=== PATIENT | female | born 2000 | race African-American/Black ===

== ENCOUNTER 2025-01-09 23:36 | Emergency (ER) | payer OTHER, SELFPAY ==
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
[2025-01-09 23:37] VITALS: BP 101/62; PULSE 99; RESP 20; TEMP 36.6; O2SAT 100
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
--- OUTSIDE RECORDS SUMMARY | 2025-01-10 00:50 | XMS_ITS | Encounter Summary ---
Author Organization [facility] Healthcare Address [address] [place] [address] Care Team Providers Care General Merchandise Salesperson Name Role Phone Priyanka Edmonds MD Primary Care Provider [phone] No, Physician Primary Care Provider Priyanka Edmonds MD Primary Care Provider [phone] No, Physician Primary Care Provider No, Physician Primary Care Provider Priyanka Edmonds MD Primary Care Provider [phone] No, Physician Primary Care Provider Unknown, Notinfile Primary Care Provider Unavail able No, Physician Unavailable No, Physician Unavailable Encounter Details Date Type Department Care Team (Late st Contact Info) Description 04/06/2018 Documentation [facility] [place] [address] Christofer Barnhart MSW Social History Tobacco Use Types Packs/Day Years Used Date Smoking Tobacco: Never Assessed Comments No Sex and Gender Information Value Date Recorded Sex Assigned at Not on file Legal Sex Female 8:00 PM CERTIFIED NURSE MIDWIFE Gender Identity Not on file Sexual Orientation Not on file documented as of this encounter Plan of Treatment Not on file documented as of this encounter Visit Diagnoses Not on filedocumented in this encounter Additional Health Concerns Infection Onset Date Last Indicated Resolved Time Group A Strep, droplet 11/19/2019 11/19/2019 3:05 AM CERTIFIED NURSE MIDWIFE COVID: Suspected 03/15/2020 03/17/2020 03/29/2020 3:05 AM CDT COVID: Suspected 03/17/2020 03/17/2020 03/18/2020 10:24 AM CDT COVID: Suspected 05/03/2020 05/03/2020 05/04/2020 5:11 AM CDT Respiratory Infection (GILDA), contact + droplet Comment:Automatically added due to negative COVID-19 result. 05/04/2020 05/04/2020 05/18/2020 3:0 5 AM CDT COVID: Suspected 12/04/2020 12/04/2020 12/04/2020 10:27 AM CERTIFIED NURSE MIDWIFE Exposure, COVID-19 06/21/2021 06/21/2021 3:05 AM CDT COVID: Suspected 06/21/2021 06/21/2021 06/21/2021 3:43 PM CDT COVID: Suspected 09/19/2021 09/19/2021 09/19/2021 1:44 PM CERTIFIED NURSE MIDWIFE Influenza, adult 09/19/2021 09/19/2021 09/26/2021 3:05 AM CERTIFIED NURSE MIDWIFE COVID19 09/19/2021 09/19/2021 10/03/2021 3:05 AM CERTIFIED NURSE MIDWIFE documented as of this encounter Care Teams General Merchandise Salesperson Relationship Specialty Start Date End Date Priyanka Edmonds MD PCP - General 04/30/17 09/03/19 No, Physician PCP - General 09/04/19 10/17/19 Priyanka Edmonds MD PCP - General 10/18/19 03/14/20 No, Physician PCP - General 03/15/20 03/16/20 No, Physician PCP - General 03/17/20 03/20/20 Priyanka Edmonds MD PCP - General Pediatrics 03/21/20 03/21/20 No, Physician PCP - General 03/22/20 09/18/21 Unknown, Notinfile PCP - General 09/19/21 No, Physician 09/19/21 No, Physician 03/17/20 documented as of this encounter
--- OUTSIDE RECORDS SUMMARY | 2025-01-10 00:51 | XMS_ITS | Encounter Summary ---
Author Organization [facility] Address [address] [place] [address] Phone Care Team Providers Care Feed Project Engineer Name Role Phone No, Physician Primary Care Provider [phone] Priyanka Edmonds MD Primary Care Provider [phone] No, Physician Primary Care Provider [phone] Unknown, Notinfile Primary Care Provider Unavail able No, Physician Unavailable No, Physician Unavailable Encounter Details Date Type Department Care Team (Late st Contact Info) Description 03/17/2020 Ophth Exam [facility] Ophthalmology [address] [place] [address] [address] [place] [id number] Solange Saonn MD [address] [place] [address] Social History Tobacco Use Types Packs/Day Years Used Date Smoking Tobacco: Never Assessed AUDIT-C Answer Date Recorded Frequency of Alcohol Consumption Never 10/16/2019 Average Number of Drinks Not on file 020 Frequency of Binge Drinking Not on file 09/25 Comments No Sex and Gender Information Value Date Recorded Sex Assigned at Not on file Legal Sex Female 8:00 PM APPLICATIONS CONSULTANT Gender Identity Not on file Sexual Orientation Not on file documented as of this encounter Plan of Treatment Not on file documented as of this encounter Visit Diagnoses Not on filedocumented in this encounter Additional Health Concerns Infection Onset Date Last Indicated Resolved Time COVID: Suspected 03/15/2020 03/17/2020 03/29/2020 3:05 AM CDT COVID: Suspected 03/17/2020 03/17/2020 03/18/2020 10:24 AM CDT COVID: Suspected 05/03/2020 05/03/2020 05/04/2020 5:11 AM CDT Respiratory Infection (GILDA), contact + droplet Comment:Automatically added due to negative COVID-19 result. 05/04/2020 05/04/2020 05/18/2020 3:0 5 AM CDT COVID: Suspected 12/04/2020 12/04/2020 12/04/2020 10:27 AM APPLICATIONS CONSULTANT Exposure, COVID-19 06/21/2021 06/21/2021 3:05 AM CDT COVID: Suspected 06/21/2021 06/21/2021 06/21/2021 3:43 PM CDT COVID: Suspected 09/19/2021 09/19/2021 09/19/2021 1:44 PM APPLICATIONS CONSULTANT Influenza, adult 09/19/2021 09/19/2021 09/26/2021 3:05 AM APPLICATIONS CONSULTANT COVID19 09/19/2021 09/19/2021 10/03/2021 3:05 AM APPLICATIONS CONSULTANT documented as of this encounter Eye Exam Visual Acuity Right eye Left eye Near sc 20/20 20/40 PH 20/20 Tonometry (Palpation, 4:25 AM) Right eye Left eye Pressure NTP NTP Patient did not tolerate tonopen, could not cooperate with tonopen exam. Palpation was used. Pupils Dark Light React APD Right eye 4 2 Brisk None Left eye 4 2 Brisk None Visual Alcant[place] (Counting fingers) Right eye Left eye Full Restrictions Partial outer lester perior temporal, superior nasal deficiencies Extraocular Movement Right eye Left eye Full Full Neuro/Psych Oriented x3: Yes Mood/Affect: Normal Dilation Both eyes: 1.0% Mydriacyl, 2 .5% Phenylephrine @ 4:25 AM External Exam Right eye Left eye External Normal Normal Slit Lamp Exam Right eye Left eye Lids/Lashes Normal Normal Conjunctiva/Sclera White and quiet Small area of temproal LOLY with chemosis Cornea Clear Clear Anterior Chamber Deep and quiet Deep and quiet. No hyphema Iris Round and reactive Round and karlene ctive Lens Clear Clear Vitreous Normal Normal Patient poorly cooperative with exam. Significant Hunter's reflex and eye squeezing. Fundus Exam Right eye Left eye Disc Normal Normal C/D Ratio 0.3 0.35 Macula Normal Normal Vessels Normal Normal Periphery Normal Normal Limited views peripherally due to patient squeezing and Hunter's Care Teams Feed Project Engineer Relationship Specialty Start Date End Date No, Physician PCP - General 03/17/20 03/20/20 Pryianka Edmonds MD PCP - General Pediatrics 03/21/20 03/21/20 No, Physician PCP - General 03/22/20 09/18/21 Unknown, Notinfile PCP - General 09/19/21 No, Physician 09/19/21 No, Physician 03/17/20 documented as of this encounter
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
--- OUTSIDE RECORDS SUMMARY | 2025-01-10 00:51 | XMS_ITS | Clinical Summary ---
Author Organization [facility] Address [address] [place] [address] Care Team Providers Care Sports Information Director Name Role Phone Unavailable Primary Care Provider Unavailabl e Source Comments [facility],non-owned Affiliates and Associated Physician Practices is amultiple site organization consisting of ambulatory clinics and hospital sitesin [place], [place], [place] and [place]. This disclosure is being madepursuant to the Care Everywhere program and may not contain all information available regarding this patient. Last updated 18.[facility] Shared Spectrum Allergies No known active allergies Medications * Be aware that medications may not be up to date on this document. Alwaysverify current medications with the patient. ibuprofen (MOTRIN) 600 MG tablet Take 600 mg by mouth 0 Active ondansetron, disintegrating, (ZOFRAN ODT) 4 MG tablet DISSOLVE ONE TABLET BY MOUTH EVERY 6 TO 8 HOURS NEEDED FOR NAUSEA 0 Active triamcinolone acetonide (KENALOG) 0.1 % ointment 1APPLICATIONTO AFFECTED AREADAILY [id number] 0 Active valACYclovir (Valtrex) 1 GM tablet Take 2 (two) tablets by mouth 2 times daily 4 tablet 2 5 Active nystatin (Mycostatin) [id number] UNIT/GM creamIndication s:Areolar keratitis, left,Candidal dermatitis Apply to affected area 2 times daily 30 g 5 Active Active Problems Problem Noted Date Diagnosed Date Iron deficiency anemia due to chronic blood loss 09/15/2020 Encounters Date Type Department Care Team Description 11/26/2024 4:00 PM CHIEF OPERATIONS OFFICER Procedure visit [facility] - [facility] [address] [facility] [address] [place] [address] Jing Chun, DO Nexplanon removal 11/26/2024 Travel 10/29/2024 9:15 AM CHIEF OPERATIONS OFFICER Office Visit [facility] - [facility] [address] [facility] [address] [place] [address] Jing Chun, DO Well woman exam with routine gynecological exam (Primary Dx); Screening examination for venereal disease; Iron deficiency anemia secondary to inadequate dietary iron intake; Dyspareunia in female; Areolar keratitis, left; Other eczema; Encounter to establish care; Candidal dermatitis 10/29/2024 Travel from Last 3 Months Family History * Patient is adopted Relation Name Status Comments Brother Alive Father Alive Mother Alive Sister Alive Social History Tobacco Use Types Packs/Day Years Used Date Smoking Tobacco: Never Smokeless Tobacco: Never Tobacco Cessation:Counseling Given: Not Answered Alcohol Use Standard Drinks/Week Comments Yes 0 (1 standard drink = 0.6 oz pur e alcohol) occassionally AUDIT-C Answer Date Recorded Q1: How often do you have a drink containing alc ohol? Monthly or less 10/29/2024 Q2: How many drinks containi ng alcohol do you have on a typical day when you are drinking? 1 or 2 10/29/2024 Q3: How often do you have si x or more drinks on one occasion? 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 on file Not o n file [employer] 2024 Not on file Not on file Not on file Last Filed Vital Signs Vital Sign Reading Time Taken Comments Blood Pressure 102/68 11/26/2024 4:51 PM CHIEF OPERATIONS OFFICER Pulse 87 09/05/2023 1:29 PM CHIEF OPERATIONS OFFICER Temperature 36.9 C (98.5 F) 06/11/2023 9:56 PM CDT Respiratory Rate 17 09/05/2023 1:29 PM CHIEF OPERATIONS OFFICER Oxygen Saturation 100% 09/05/2023 1:29 PM CHIEF OPERATIONS OFFICER Inhaled Oxygen Concentration - - Weight 43.5 kg (95 lb 12.8 oz) 11/26/2024 4:51 P M CHIEF OPERATIONS OFFICER Height 144.8 cm (4' 9 ) 10/29/2024 9:49 AM CHIEF OPERATIONS OFFICER Body Mass Index 20.73 10/29/2024 9:49 AM CHIEF OPERATIONS OFFICER Plan of Treatment Upcoming Encounters Date Type Department Care Team (Late st Contact Info) Description 02/04/2025 11:20 AM CDT Office Visit [facility] [address] [place] [address] Nasim Cole DO [address] [place] [id number] Health Maintenance Due Date Last Done Comments HPV VACCINE (1 - 3-dose series) 2017 MENINGOCOCCAL (Group B) VACCINE SHARED DECISION-MAKING (1 of 2 - Standard) 2018 DTAP/TDAP/TD VACCINES (1 - Tdap) 2021 HEPATITIS B VACCINE (1 of 3 - 19+ 3-dose series) 2021 COVID-19 VACCINE (1 - season) 2024 DEPRESSION SCREENING 09/24/2024 INFLUENZA VACCINE (Season Ended) 2025 08/28/2013, 08/16/2011, 08/08/2010, Additional history exists CHLAMYDIA/GONORRHEA SCREENING 10/29/2025 10/29/2024, 09/05/2023, 12/17/2022, Additional history exists PAP SMEAR 09/05/2026 09/05/2023 ZOSTER VACCINE (1 of 2) 2052 HEPATITIS C SCREENING Completed 10/29/2024 HIV SCREENING Completed 10/29/2024 HIB VACCINE Aged Out No longer eligi ble based on patient's age to complete this topic MENINGOCOCCAL GROUPS A/C/Y/W VACCINE Aged Out No longer eligible based on patient's age to complete this topic PNEUMOCOCCAL VACCINE Aged Out No long er eligible based on patient's age to complete this topic Procedures Procedure Name Priority Date/Time Associated Diagnosis Comments CHLAMYDIA + GC + TRICH DNA AMPL Routine 10/29/2024 4:11 PM CHIEF OPERATIONS OFFICER Screening examination for venereal disease HERPES SIMPLEX 2 ANTIBODY IGG Routine 10/29/2024 10:48 AM CHIEF OPERATIONS OFFICER Screening examination for venereal disease HEPATITIS B + C PANEL Routine 10/29/2024 10:48 AM CHIEF OPERATIONS OFFICER Screening examination for venereal disease TREPONEMA PALLIDUM POS REFLX RPR Routine 10/29/2024 10:48 AM CHIEF OPERATIONS OFFICER Screening examination for venereal disease HIV-1 HIV-2 ANTIBODY + HIV P24 AG PANEL Routine 10/29/2024 10:48 AM CHIEF OPERATIONS OFFICER Screening examination for venereal disease IRON + TIBC + FERRITIN Routine 10/29/2024 10:47 AM CHIEF OPERATIONS OFFICER Iron deficiency anemia secondary to inadequate dietary iron intake CBC W AUTO DIFFERENTIAL Routine 10/29/2024 10:47 AM CHIEF OPERATIONS OFFICER Iron deficiency anemia secondary to inadequate dietary iron intake PAP IG LB RFLX HPV APTIMA ASCU Routine 09/05/2023 2:51 PM CHIEF OPERATIONS OFFICER Pap smear for cervical cancer screening from Last 3 Months or Most Recently Relevant to Health Maintenance Results * CHLAMYDIA + GC + TRICH DNA AMPL (10/29/2024 4:11 PM CHIEF OPERATIONS OFFICER) Chlamydia trachomatis MENDEZ Negative Negative [facility] INSURANCE BILL GC DNA Probe Negative Negative [facility] INSURANCE BILL Trichomonas vaginalis by MENDEZ Negative Negative [facility] INSURANCE BILL Microbiology ENTIRE ENDOCERVIX / Unknown 10/29/2024 4:11 PM CHIEF OPERATIONS OFFICER 10/29/2024 Comment:Endocrvx Release to [facility] INSURANCE BILL - 10/31/2024 9:06 PM CHIEF OPERATIONS OFFICER Performed at: [address] [place] [address] [place] [id number] Open Hearth Helper: Mariah Joshua MD, Phone: [phone] us Jing Chun DO LAB - MICROBIOLOGY ORDERABLES Fi nal Result Performing Organization Address [facility] Co de Phone Number [facility] INSURANCE BILL [address] [place] [address] * HEPATITIS B + C PANEL (10/29/2024 10:48 AM CHIEF OPERATIONS OFFICER) Hepatitis B Virus Surface Antigen Negative Negative [facility] INSURANCE BILL Hepatitis B Virus Surface Antibody Non Reactive [facility] INSURANCE BILL Comment: Non Reactive: Not immune to HBV infection. Equivocal: Unable to determine if anti-HBs is present at levels consistent with immunity. Reactive: Anti-HBs concentration detected at greater than 10 mIU/mL. Individual is considered to be immune to infection with HBV. Hepatitis B Core Virus Antibody Total Negative Negative [facility] INSURANCE BILL Hepatitis C Antibody Non Reactive Non Reactive [facility] INSURANCE BILL Comment: Performed at: - [address] [id number] Open Hearth Helper: Isreal Hartman PhD, Phone: [phone] Interpretation Comment [facility] INSURANCE BILL Comment: Not infected with HCV unless early or acute infection is suspected (which may be delayed in an immunocompromised individual), or other evidence exists to indicate HCV infection. Blood BLOOD SPECIMEN / Unknown 10/29/2024 10:48 AM CHIEF OPERATIONS OFFICER 10/29/2024 Narrative [facility] INSURANCE BILL - 10/30/2024 7:09 AM CHIEF OPERATIONS OFFICER Performed at: [address] [place] [id number] Open Hearth Helper: Isreal Hartman PhD, Phone: [phone] us Jing Chun DO LAB - SEROLOGY ORDERABLES Final Result Performing Organization Address City/[facility]/ZIP Co de Phone Number [facility] INSURANCE BILL [address] [place] [address] * HIV-1 HIV-2 ANTIBODY + HIV P24 AG PANEL (10/29/2024 10:48 AM CHIEF OPERATIONS OFFICER) HIV Screen 4th Generation w Reflex Non Reactive Non Reactive [facility] INSURANCE BILL Comment: HIV-1/HIV-2 antibodies and HIV-1 p24 antigen were NOT detected. There is no laboratory evidence of HIV infection. HIV Negative Blood BLOOD SPECIMEN / Unknown 10/29/2024 10:48 AM CHIEF OPERATIONS OFFICER 10/29/2024 Narrative [facility] INSURANCE BILL - 10/30/2024 6:10 AM CHIEF OPERATIONS OFFICER Performed at: [facility] [address] [place], [place] [id number] Open Hearth Helper: Isreal Hartman PhD, Phone: [phone] Jing Chun DO LAB - CHEMISTRY ORDERABLES Final Result Performing Organization Address [facility] Co de Phone Number [facility] INSURANCE BILL [address] [place] [address] * TREPONEMA PALLIDUM POS REFLX RPR (10/29/2024 10:48 AM CHIEF OPERATIONS OFFICER) T pallidum Antibody (TP-PA) Non Reactive Non Reactive [facility] INSURANCE BILL Blood BLOOD SPECIMEN / Unknown 10/29/2024 10:48 AM CHIEF OPERATIONS OFFICER 10/29/2024 Narrative [facility] INSURANCE BILL - 10/31/2024 11:06 PM CHIEF OPERATIONS OFFICER Performed at: [address] [id number] Open Hearth Helper: Everton Fitzgerald MD, Phone: [phone] Jing Chun DO LAB - SEROLOGY ORDERABLES Final Result Performing Organization Address [facility] Co de Phone Number [facility] INSURANCE BILL [address] [place] [address] * HERPES SIMPLEX 2 ANTIBODY IGG (10/29/2024 10:48 AM CHIEF OPERATIONS OFFICER) Herpes Simplex Virus 2 Antibody IgG Type Specific Non Reactive Non Reactive [facility] INSURANCE BILL Comment: Please note reference interval change Current guidelines and recommendations do not recommend routine screening for HSV-2 in asymptomatic individuals, including those that are . The detection of HSV-2 IgG antibodies in a single sample indicates previous exposure to HSV-2 but does not give information as to the site of HSV infection or the timing of exposure. The predictive value of positive and negative results depends on the population's prevalence and the pretest likelihood of HSV-2. HSV-2 IgG testing performed using the Leidy Elecsys HSV-2 IgG assay. Blood BLOOD SPECIMEN / Unknown 10/29/2024 10:48 AM CHIEF OPERATIONS OFFICER 10/29/2024 Narrative [facility] INSURANCE BILL - 10/30/2024 7:09 AM CHIEF OPERATIONS OFFICER Performed at: - [address] [id number] Open Hearth Helper: Isreal Hartman PhD, Phone: [phone] us Jing Chun DO LAB - CHEMISTRY ORDERABLES Final Result Performing Organization Address City/[facility]/ZIP Co de Phone Number [facility] INSURANCE BILL [address] [place] [address] * IRON + TIBC + FERRITIN (10/29/2024 10:47 AM CHIEF OPERATIONS OFFICER) TIBC 410 250 - 450 ug/dL [facility] INSURANCE BILL UIBC 311 131 - 425 ug/dL [facility] INSURANCE BILL Iron 99 27 - 159 ug/dL [facility] INSURANCE BILL Iron Saturation 24 15 - 55 % [facility] INSURANCE BILL Ferritin 19 15 - 150 ng/mL [facility] INSURANCE BILL Blood BLOOD SPECIMEN / Unknown 10/29/2024 10:47 AM CHIEF OPERATIONS OFFICER 10/29/2024 Narrative [facility] INSURANCE BILL - 10/30/2024 6:10 AM CHIEF OPERATIONS OFFICER Performed at: - [facility] [id number] Open Hearth Helper: Isreal Hartman PhD, Phone: [phone] us Jing Chun DO LAB - CHEMISTRY ORDERABLES Final Result Performing Organization Address City/[facility]/ZIP Co de Phone Number [facility] INSURANCE BILL [address] [place] [address] * (ABNORMAL) CBC WITH DIFFERENTIAL (10/29/2024 10:47 AM CHIEF OPERATIONS OFFICER) WBC 9.1 3.4 - 10.8 x10E3/uL [facility] INSURANCE BILL RBC 4.90 3.77 - 5.28 x10E6/uL [facility] INSURANCE BILL Hemoglobin 11.6 11.1 - 15.9 g/dL [facility] INSURANCE BILL Hematocrit 38.4 34.0 - 46.6 % [facility] INSURANCE BILL MCV 78(L) 79 - 97 fL [facility] INSURANCE BILL MCH 23.7(L) 26.6 - 33.0 pg [facility] INSURANCE BILL MCHC 30.2(L) 31.5 - 35.7 g/dL [facility] INSURANCE BILL RDW 13.2 11.7 - 15.4 % [facility] INSURANCE BILL Platelet Count 271 150 - 450 x10E3/uL [facility] INSURANCE BILL Granulocytes % 65 Not Estab. % [facility] INSURANCE BILL Lymphocytes % 25 Not Estab. % [facility] INSURANCE BILL Monocytes % 9 Not Estab. % [facility] INSURANCE BILL Eosinophils % 1 Not Estab. % [facility] INSURANCE BILL Basophils % 0 Not Estab. % [facility] INSURANCE BILL Granulocytes Absolute 6.0 1.4 - 7.0 x10E3/uL [facility] INSURANCE BILL Lymphocytes Absolute 2.3 0.7 - 3.1 x10E3/uL [facility] INSURANCE BILL Monocytes Absolute 0.8 0.1 - 0.9 x10E3/uL [facility] INSURANCE BILL Eosinophils Absolute 0.1 0.0 - 0.4 x10E3/uL [facility] INSURANCE BILL Basophils Absolute 0.0 0.0 - 0.2 x10E3/uL [facility] INSURANCE BILL Immature Granulocytes 0 Not Estab. % [facility] INSURANCE BILL Immature Granulocytes Absolute 0.0 0.0 - 0.1 x10E3/uL [facility] INSURANCE BILL Blood BLOOD SPECIMEN / Unknown 10/29/2024 10:47 AM CHIEF OPERATIONS OFFICER 10/29/2024 Narrative [facility] INSURANCE BILL - 10/29/2024 11:06 PM CHIEF OPERATIONS OFFICER Performed at: 01 - [address] [id number] Open Hearth Helper: Isreal Hartman PhD, Phone: [phone] us Jing Chun DO LAB - HEMATOLOGY ORDERABLES Cuca l Result [facility] INSURANCE BILL [address] [place] [address] * PAP IG LB RFLX HPV APTIMA ASCU (09/05/2023 2:51 PM CHIEF OPERATIONS OFFICER) Diagnosis Comment 09/12/2023 2:10 PM CHIEF OPERATIONS OFFICER [facility] ([facility]) Comment: NEGATIVE FOR INTRAEPITHELIAL LESION OR MALIGNANCY. FUNGAL ORGANISMS MORPHOLOGICALLY CONSISTENT WITH OLIVIA SPECIES ARE PRESENT. THIS SPECIMEN WAS RESCREENED PART OF OUR AUTOMATIC COIN MACHINE MECHANIC PROGRAM. Specimen Adequacy Comment 2:10 PM CHIEF OPERATIONS OFFICER [facility] ([facility]) Comment: Satisfactory for evaluation. Endocervical and/or squamous metaplastic cells (endocervical component) are present. Performed by Comment 09/12/2023 2:10 PM CHIEF OPERATIONS OFFICER [facility] ([facility]) Comment:Wen mclaughlin, Remote Sensing Engineer (ASC) QC Reviewed by Comment 09/12/2023 2:10 PM CHIEF OPERATIONS OFFICER [facility] ([facility]) Comment:Chery Vasquez, Cytot echnologist ([facility]) Comment . 09/12/2023 2:10 PM CHIEF OPERATIONS OFFICER [facility] ([facility]) Note Comment 09/12/2023 2:10 PM CHIEF OPERATIONS OFFICER [facility] ([facility]) Comment: The Pap smear is a screening test designed to aid in the detection of premalignant and malignant conditions of the uterine cervix. It is not a diagnostic procedure and should not be used as the sole means of detecting cervical cancer. Both false-positive and false-negative reports do occur. IGLBP CPT Code Automation Comment 09/12/2023 2:10 PM CHIEF OPERATIONS OFFICER [facility] ([facility]) Comment: This liquid based ThinPrep(R) pap test was screened with the use of an image guided system. Note Comment 09/12/2023 2:10 PM CHIEF OPERATIONS OFFICER [facility] ([facility]) Comment: The HPV DNA reflex criteria were not met with this specimen result therefore, no HPV testing was performed. Pathology/Cytolo gy PART OF UTERINE CERVIX / Unknown Collection / Unknown 09/05/2023 2:51 PM CHIEF OPERATIONS OFFICER 09/05/2023 3:10 PM CHIEF OPERATIONS OFFICER Narrative [facility] ([facility]) - 09/12/2023 2:10 PM CHIEF OPERATIONS OFFICER Performed at: [address] [place] [id number] Open Hearth Helper: Mariah Joshua MD, Phone: [phone] Specimen Comment: Source.............Cervix;Endocervix Specimen Comment: No. of containers..01 ThinPrep Vial Rosalind Moeller REMOTE SENSING ENGINEER-MANAGER UTILIZATION LAB - PATHOLOGY/CYTOLO GY ORDERABLES Final Result [facility] ([facility]) [address] [place] [address] from Last 3 Months or Most Recently Relevant to Health Maintenance Insurance [place] MEDICAID HOME STATE [employer] PLAN
--- OUTSIDE RECORDS SUMMARY | 2025-01-10 00:51 | XMS_ITS | Continuity of Care Document ---
Author Organization [facility] Address [address] [place] [address] Phone Care Team Providers Care Travel Freight And Passenger Agent Name Role Phone Unavailable Unavailable Unavailable Procedures Procedure Date Cone Beam 1 Full Arch Maxilla, W/w/o Assistant Track And Field Coach nium Limit Oral Evaluation- problem focused J Advance Directives Directive Yes / No Effective Date File Name No Information Encounters Encounter Description Practice Location Reason(s) For Visit Diagnoses Date Provider Providers Copied on Encounter [facility] , [address], [place], [place], [id number], tel:[phone] [facility] Encounter for dental exam and cleaning w/o abnormal findings No Information Referring Provider: Sim Mirza [address], [place], [address]. tel:[phone] Family History Family Member Type Diagnosis Age At Onset No Information Payers Payer name Insurance type Covered green party ID Authoriza tion(s) [employer] [id number] Social History Type Description Quantity Date Captured Comments Sex Female Smoking Status No Information Chief Complaint And Reason For Visit No Information Reason For Referral Reason For Referral No Information History Of Present Illness Encounter Date Complaint History Of Prese nt Illness No Information Functional Status Date Functional Assessmen t No Information Instructions Date Instruction Additional Infor mation No Information Assessments Type Assessment Date No Information Patient Care Teams Name Effective Dates (start - stop) Status Members No Information
--- OUTSIDE RECORDS SUMMARY | 2025-01-10 00:51 | XMS_ITS | Clinical Summary ---
Author Organization [facility] Address [address] [place] [address] Care Team Providers Care Pool Hand Name Role Phone Unknown, Notinfile Primary Care Provider Unavail able No, Physician Unavailable No, Physician Unavailable Allergies No known active allergies Medications traMADoL [...] and are at baseline. Dysmetria persists. - [facility] Assessment & Plan (03/19/2020 5:55 PM CDT): On presentation, R sided weakness, numbness, and dysmetria were noted. Weakness and sensation have significantly improved and are at baseline. Dysmetria persists. - [facility] Assessment & Plan (03/19/2020 11:04 AM CDT): On presentation, R sided weakness, numbness, and dysmetria were noted. Weakness and sensation have significantly improved and are at baseline. Dysmetria persists. - [facility] High risk social situations 03/19/2020 Assessment & [...] right hand 03/18/202003/19 Sensory deficit, right 03/18/202003/19 Encounters Date Type Department Care Team Description 12/28/2024 8:29 PM CDT - 12/28/2024 10:54 PM CDT Emergency [facility] Emergency Department [facility] [place] [address] Laceration of left hand without foreign body, initial encounter (Primary Dx) Discharge Disposition: Discharge to home or self care from Last 3 Months Immunizations Immunization Administration Dates Next Due Tdap 12/28/2024 Medical History Medical History Date Comments No known health problems Eczema Anemia Social History Tobacco Use Types Packs/Day Years [...] on file 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 Gender Identity Not on file Sexual Orientation Not on file Obstetrics History Last Filed Vital Signs Vital Sign Reading [...] 12/28/2024 8:16 PM CDT Plan of Treatment Health Maintenance Due Date Last Done Comments Cervical Cancer Screening 2002 Depression Screening 2002 Hepatitis C Screening 2002 Varicella Vaccines (2 of 2 - 2-dose childhood series) 2006 03/19/2003 HPV Vaccines (1 - 3-dose series) 2017 Meningococcal B Vaccine (1 of 2 - Standard) 2018 Regular Well Visit/Exam 18-64 2020 Influenza Vaccine (Season Ended) 2025 08/28/2013, 08/16/2011, 08/08/2010, Additional history exists DTaP/Tdap/Td Vaccine (8 - Td or Tdap) 12/28/2034 12/28/2024, 08/28/2013, 06/01/2006, Additional history exists Hepatitis B Screening Completed 2002 , 2002, 2002 Pneumococcal vaccine <65 Aged Out 006, 03/19/2003, 2002, Additional history exists No longer eligible based on patient's age [...] Informed consent: Risks, benefits, alternatives discussed and patient/customer service representative teacher/guardian agrees and accepts Patient's stated name/ matches [...] and matched to patient identification: n/a Responsible alliance party for transporting specimen(s) to lab determined: n/a us Haydee Bell MD IN CLINIC/BEDSIDE ORDERAB LES Final Result from Last 3 Months Insurance [employer]AN [place] [employer] [facility] [employer] [place] [employer] [place] [employer] Advance Directives For more information, please contact: [phone] Documents on File Type Date Recorded Patient Director Client Services Expl anation ADVANCE DIRECTIVE 03/17/2020 1:05 AM * Full Code (Latest Code Status on File) Date Activated Date Inactivated Comments 03/17/2020 9:31 PM 03/21/2020 8:50 PM * Full Code Date Activated Date Inactivated Comments 03/17/2020 11:47 AM 03/17/2020 4:43 PM * Full Code Date Activated Date Inactivated Comments 04/06/2018 12:57 AM 04/07/2018 12:06 AM Care Teams Pool Hand Relationship Specialty Start Date End Date Unknown, Notinfile PCP - General 09/19/21 No, Physician 09/19/21 No, Physician 03/17/20
[2025-01-10 01:20] VITALS: BP 114/70; PULSE 90; RESP 16; O2SAT 99
[2025-01-10 01:23] VITALS: BP 114/70; PULSE 90; RESP 16; O2SAT 99
--- NOTE | 2025-01-10 01:23 | PC.NURSE ---
pt took off quality assurance monitor chassis and blood pressure cuff.
== END 2025-01-10 01:25 | disposition home or self-care (01) ==
PROVIDERS: Emergency Provider Emergency Medicine
DX: S39.92XA Unspecified injury of lower back, initial encounter (principal); S09.90XA Unspecified injury of head, initial encounter; S19.9XXA Unspecified injury of neck, initial encounter; V48.6XXA Car passenger injured in noncollision transport accident in traffic accident, initial encounter
CPT/HCPCS: 70450; 72125; 72128; 72131; 99284